=== PATIENT | female | born 1975 | race Caucasian/White ===

== ENCOUNTER 2018-10-21 16:07 | Emergency (ER) | payer OTHER ==
[2018-10-21] MEDS: PHENAZOPYRIDINE 100 MG TAB PO (16:49)
[2018-10-21] MEDS: CIPROFLOXACIN 500 MG TAB PO (16:49)
[2018-10-21 16:54] LABS: URINE BLOOD (Dip) POC 3+ (NEGATIVE); URINE GLUCOSE (Dip) POC Negative (NEGATIVE); URINE KETONES (Dip) POC Negative (NEGATIVE); URINE LEUKOCYTE EST (Dip) POC 3+ (NEGATIVE); URINE NITRITE (Dip) POC Negative (NEGATIVE); URINE TOTAL PROTEIN POC 1+ (NEGATIVE)
== END 2018-10-21 17:07 | disposition home or self-care (01) ==
LOC: FTE 16:07
DX: N39.0 Urinary tract infection, site not specified (principal)
CPT/HCPCS: 81003; 81025; 99283